=== PATIENT | female | born 1975 | race Caucasian/White ===

== ENCOUNTER 2020-12-17 11:40 | Inpatient (IN) | payer MEDICAID ==
[~2020-12-17] VITALS: Ht 162.6 cm; Wt 49.7 kg
--- NOTE | 2020-12-17 12:15 | NUR ---
Pt states CP started 1 year ago in January. Described as aching pressure, associated SOB, comes and goes and nothing triggers it. Pt was seen last January and "was told it was not a heart attack." US at bedside. NADN. Connected to all monitors.
--- NOTE | 2020-12-17 12:18 | NUR ---
Bedside report to primary nurse Lora.
[2020-12-17 12:19] LABS: BASOPHILS % (AUTO) 1 % (0-1); EOSINOPHILS % (AUTO) 3 % (1-7); LYMPHOCYTES % (AUTO) 26 % (22-44); MD NO; MEAN CORPUSCULAR HEMOGLOBIN 26.1 pg (27.0-34.8); MEAN CORPUSCULAR HGB CONC 32.6 g/dL (32.4-35.8); MEAN PLATELET VOLUME 8.7 fL (7.4-10.4); MONOCYTES % (AUTO) 7 % (2-9); NEUTROPHILS % (AUTO) 64 % (42-75); PLATELET COUNT 295 x10^3/uL (130-400); RED BLOOD COUNT 4.95 x10^6/uL (3.82-5.3); RED CELL DISTRIBUTION WIDTH 16.2 % (9.6-15.2)
[2020-12-17 12:29] LABS: CHLORIDE 96 mmol/L (98-107)
[2020-12-17 12:38] LABS: ALBUMIN 4.1 g/dL (3.4-5.0); ALKALINE PHOSPHATASE 72 U/L (45-117); BILIRUBIN,TOTAL 0.7 mg/dL (0.2-1.0); CALCIUM 9.7 mg/dL (8.5-10.1); TOTAL PROTEIN 7.5 g/dL (6.4-8.2); TROPONIN I < 0.015 ng/mL (0.000-0.045)
[2020-12-17 12:42] LABS: ANION GAP 9 mmol/L (5-15)
--- NOTE | 2020-12-17 12:49 | NUR ---
TASK RN: US IN PROGRESS WILL START PIV WHEN COMPLETE.
[2020-12-17] MEDS ORDERED: POTASSIUM CHLORIDE 20 MEQ TAB.ER.PRT ONE (12:55)
[2020-12-17] MEDS ORDERED: POTASSIUM CHLORIDE 20 MEQ TAB.ER.PRT PO ONE (13:00)
--- NOTE | 2020-12-17 13:02 | NUR ---
TASK RN: PT AMBULATED TO THE BR INDEPENDETLY W/ A STEADY GAIT. URINE COLLECTED AND SENT TO LAB. PT RETURNED TO ROOM W/O INCIDENT. MED REQ FROM [facility]. PT MEDICATED W/ PO KDUR PER EMAR. AT BEDSIDE.
[2020-12-17 13:04] LABS: ALANINE AMINOTRANSFERASE 27 U/L (12-78)
[2020-12-17 13:15] LABS: MICROSCOPIC NOT IND
[2020-12-17] MEDS ORDERED: ASPI81TA45 PO (13:41)
[2020-12-17] MEDS ORDERED: AMLO-211 PO (13:41)
[2020-12-17] MEDS ORDERED: BENA10TA59 PO (13:41)
--- NOTE | 2020-12-17 13:41 | NUR ---
TASK RN: IV K+ STARTED PER EMAR. MED REC COMPLETED. PT RESTING ON [employer] W/ CALL LIGHT IN REACH AND SIDE RAILS UPX2. ROBERT FLOREZ.
[2020-12-17] MEDS ORDERED: POTASSIUM CHLORIDE 40 MEQ in SODIUM CHLORIDE 0.9% 500 ML IV ONE ×4 (14:00→18:30)
[2020-12-17] MEDS ORDERED: SODIUM CHLORIDE FLUSH 10ML SYR IVF PRN (14:00)
[2020-12-17] MEDS ORDERED: NS + 40MEQ KCL 1,000 ML IV ONE ×2 (14:00→17:30)
--- NOTE | 2020-12-17 14:15 | NUR ---
PHONE REPORT TO CODY GALVEZ [id number]
[2020-12-17] MEDS ORDERED: ONDANSETRON ODT 4 MG PO PRN (15:00)
[2020-12-17] MEDS ORDERED: PIPERONYL BUTOXIDE/PYRETHRINS 4OZ. SHAMPOO TP SCH (15:00)
[2020-12-17] MEDS ORDERED: ONDANSETRON 2MG/ML, 2ML IVPush PRN (15:00)
[2020-12-17] MEDS ORDERED: PERMETHRIN CRM 5%, 60GM TP ONE (15:00)
[2020-12-17] MEDS ORDERED: POLYETHYLENE GLYCOL 17 GM PACKET PO PRN (15:00)
[2020-12-17] MEDS ORDERED: ENOXAPARIN 40 MG/0.4 ML SQ SCH (15:00)
[2020-12-17] MEDS ORDERED: MAALOX/HYOSCYAMINE/LIDOCAINE 45 ML BTL PO ONE (15:00)
[2020-12-17] MEDS ORDERED: ACETAMINOPHEN 500 MG TABLET PO PRN (15:00)
[2020-12-17 15:44] VITALS: BP 113/76
[2020-12-17] MEDS: OMEPRAZOLE 20 MG CAPSULE.DR PO SCH (15:56)
[2020-12-17] MEDS: SUCRALFATE 1 GM/10 ML UDC PO SCH ×2 (15:56→20:58)
[2020-12-17 20:03] LABS: MICROSCOPIC INDICATED
[2020-12-17 20:12] LABS: AMPHETAMINE SCREEN, URINE Negative (Negative); BARBITURATE SCREEN, URINE Negative (Negative); BENZODIAZEPINE SCREEN, URINE Negative (Negative); CANNABINOID SCREEN, URINE Positive (Negative); COCAINE SCREEN, URINE Negative (Negative); METHADONE SCREEN, URINE Negative (Negative); OPIATE SCREEN, URINE Negative (Negative)
[2020-12-17 20:36] VITALS: BP 96/60
[2020-12-17] MEDS ORDERED: NICOTINE 21 MG/24 HR PATCH.TD24 TD SCH (21:00)
[2020-12-18 02:46] VITALS: BP 134/91
[2020-12-18 06:00] LABS: BASOPHILS % (AUTO) 1 % (0-1); EOSINOPHILS % (AUTO) 2 % (1-7); LYMPHOCYTES % (AUTO) 28 % (22-44); MEAN CORPUSCULAR HEMOGLOBIN 26.2 pg (27.0-34.8); MEAN CORPUSCULAR HGB CONC 33.2 g/dL (32.4-35.8); MEAN PLATELET VOLUME 9.1 fL (7.4-10.4); MONOCYTES % (AUTO) 5 % (2-9); NEUTROPHILS % (AUTO) 63 % (42-75); PLATELET COUNT 268 x10^3/uL (130-400); RED BLOOD COUNT 4.82 x10^6/uL (3.82-5.3)
[2020-12-18] MEDS: OMEPRAZOLE 20 MG CAPSULE.DR PO SCH (06:00)
[2020-12-18 06:07] LABS: CHLORIDE 104 mmol/L (98-107)
[2020-12-18 06:10] LABS: MD NO
[2020-12-18 06:15] LABS: ALANINE AMINOTRANSFERASE 29 U/L (12-78); ALKALINE PHOSPHATASE 70 U/L (45-117); ANION GAP 8 mmol/L (5-15); BILIRUBIN,TOTAL 0.6 mg/dL (0.2-1.0); CREATININE 0.84 mg/dL (0.55-1.02); TOTAL PROTEIN 7.4 g/dL (6.4-8.2)
[2020-12-18] MEDS: SUCRALFATE 1 GM/10 ML UDC PO SCH (06:15)
[2020-12-18] MEDS ORDERED: POTASSIUM CHLORIDE 40 MEQ in SODIUM CHLORIDE 0.9% 500 ML IV ONE (07:00)
[2020-12-18] MEDS ORDERED: POTASSIUM CHLORIDE 20 MEQ TAB.ER.PRT PO SCH (08:00)
[2020-12-18] MEDS ORDERED: SENNA/DOCUSATE TABLET PO SCH (09:00)
== END 2020-12-18 08:25 | disposition left against medical advice (07) | DRG 241 ==
LOC: ED 13:49 → 4WST 14:32
PROVIDERS: ADMIT Hospitalist; ATTEND Hospitalist
DX: K29.70 Gastritis, unspecified, without bleeding (principal); K76.0 Fatty (change of) liver, not elsewhere classified; E87.6 Hypokalemia; F17.210 Nicotine dependence, cigarettes, uncomplicated; I10 Essential (primary) hypertension; B85.2 Pediculosis, unspecified; K20.90 Esophagitis, unspecified without bleeding; Z53.29 Procedure and treatment not carried out because of patient's decision for other reasons; R07.89 Other chest pain; K27.9 Peptic ulcer, site unspecified, unspecified as acute or chronic, without hemorrhage or perforation; R39.15 Urgency of urination; K82.8 Other specified diseases of gallbladder; Z79.82 Long term (current) use of aspirin
CPT/HCPCS: 36415; 71045; 76700; 80053; 80307; 81001; 81003; 83690; 83735; 84484; 85025; 93005; 96365; G0378; J1650; J3480; J7040